=== PATIENT | male | born 1940 | race Caucasian/White ===

== ENCOUNTER 2017-03-18 09:33 | Day surgery (SDC) | payer MEDICARE ==
[2017-02-28 09:03] VITALS: BMI 28.4
[2017-03-18 11:12] LABS: CHLORIDE 105 mmol/L (98-107); POTASSIUM 4.4 mmol/L (3.6-5.2); SODIUM 139 mmol/L (132-148)
[2017-03-18 11:15] LABS: BLOOD UREA NITROGEN 14 mg/dL (9-20); CALCIUM 9.2 mg/dl (8.6-10.4); CARBON DIOXIDE 23 mmol/L (22-30); GFR AFRICAN-AMERICAN > 60; GLUCOSE,RANDOM 135 mg/dL (75-110)
[2017-03-18] MEDS ORDERED: Propofol 10 mg/ml Inj (20 ML) ONE (11:24)
[2017-03-18] MEDS ORDERED: ceFAZolin IV 1 gm in Dextrose 0 GM/0 ML BAG IVPB ONE (11:27)
[2017-03-18] MEDS ORDERED: Lidocaine 1% Inj (20ml) ONE (11:27)
[2017-03-18] MEDS ORDERED: HEPARIN-NS 5,000 UNITS/500 ML 5,000 UNIT/500 ML BAG IV ONE (11:28)
[2017-03-18] MEDS ORDERED: Vancomycin 1 gm/D5W 200 ml 1 GM/200 ML BAG IVPB ONE (12:18)
[2017-03-18] MEDS ORDERED: Sodium Chloride 0.9% 1,000 ML IV ONE (12:25)
--- NOTE | 2017-03-18 13:21 | PCM.SURG1 ---
Surgeon's Initial Post Op Note - Surgeon's Notes Surgeon: Dr. [employer] Field Examiner: Dr. Singer PGY-3 Type of Anesthesia: General LMA Pre-Operative Diagnosis: Renal failure s/p Kidney transplant, no longer need for dialysis Operative Findings: good radial pulse Post-Operative Diagnosis: Renal failure s/p Kidney transplant, no longer need for dialysis Operation Performed: AV Fistula revision/Ligation Left arm Specimen/Specimens Removed: none Estimated Blood Loss: EBL {In ML}: 5 Blood Products Given: N/A Drains Used: No Drains Post-Op Condition: Good Date of Surgery/Procedure: 03/18/17 Time of Surgery/Procedure: 13:21
[2017-03-18] MEDS ORDERED: Sodium Chloride 0.9% 500 ML IV ONE (14:00)
[2017-03-18] MEDS: HYDROmorphone 0.5 mg/0.5 ml ISec IVP PRN ×2 (14:27→14:59)
[2017-03-18] MEDS ORDERED: HYDROmorphone 1 mg/ml ISec ONE ×2 (14:27→14:59)
[2017-03-18 15:58] VITALS: BP 188/61; PULSE 81; RESP 18; TEMP 97; O2SAT 99
--- NOTE | 2017-03-19 01:21 | OP ---
PROCEDURE DATE: 03/18/2017 PREOPERATIVE DIAGNOSIS: Unnecessary AV fistula, left arm. PROCEDURE: Revision of AV fistula with ligation. SURGEON: Ramirez Mcnamara Jr., MD SCANNER OPERATOR: Dr. Singer ANESTHESIOLOGIST: Dr. May The patient is a middle-aged male with successful renal transplant. There was a hyper-fistula in his left arm, which no longer is needed for dialysis access. After discussion with his Diagnostic Tech and the patient, he requested that this to be removed. OPERATIVE FINDINGS: The fistula was ligated adjacent to the arterial anastomosis where this resulted in diminution of the flow through the fistula and this was doubly ligated. After this was done, the wounds were then closed with Monocryl and Vicryl sutures and Steri-Strips on the skin. Operation carried out was revision of AV fistula, left arm with ligation. At the end of the procedure, there was an excellent pulse at the wrist. Ramirez Mcnamara Jr., MD
== END 2017-03-18 16:26 | disposition home or self-care (01) ==
LOC: C.SDS 09:33
PROVIDERS: ATTEND Surgery Vascular Surgery
DX: Z45.2 Encounter for adjustment and management of vascular access device (principal); N18.6 End stage renal disease; I12.0 Hypertensive chronic kidney disease with stage 5 chronic kidney disease or end stage renal disease; Z94.0 Kidney transplant status; I25.10 Atherosclerotic heart disease of native coronary artery without angina pectoris; E78.5 Hyperlipidemia, unspecified; I25.2 Old myocardial infarction; Z95.5 Presence of coronary angioplasty implant and graft; Z95.1 Presence of aortocoronary bypass graft; Z87.891 Personal history of nicotine dependence
CPT/HCPCS: 36415; 36832; 80048; 82948; J1170; J2001; J2270; J2704; J3010; J3370; J7040